=== PATIENT | female | born 1985 | race Caucasian/White ===

== ENCOUNTER → 2016-10-16 | Outpatient (CLI) | payer OTHER | LOC: MW.LAB 16:20 | PROVIDERS: ATTEND Obstetrics & Gynecology | DX: N77.1 Vaginitis, vulvitis and vulvovaginitis in diseases classified elsewhere (principal); Z31.9 Encounter for procreative management, unspecified | CPT/HCPCS: 36415; 82397; 83036 ==

== ENCOUNTER 2019-02-17 06:52 | Day surgery (SDC) | payer OTHER ==
--- NOTE | 2019-02-17 07:24 | PCM.PREANE ---
Preanesthetic Assessment - Anesthesia/Transfusion/Family Hx Anesthesia History: No Prior Anesthesia Family History of Anesthesia Reaction: No Transfusion History: No Prior Transfusion(s) - Review of Systems General: No Symptoms Pulmonary: No Symptoms Cardiovascular: No Symptoms Gastrointestinal: No Symptoms Neurological: No Symptoms Other: Reports: None - Physical Assessment NPO Status Date: 02/16/19 NPO Status Time: 21:00 Vital Signs: Last Vital Signs Temp 96.8 F 02/17/19 07:00 Pulse Resp 16 02/17/19 07:00 BP 138/78 02/17/19 07:00 Pulse Ox 98 02/17/19 07:00 Height: 5 ft 3 in Weight: 59.421 kg ASA Class: 1 Mental Status: Alert & Oriented x3 Airway Class: Mallampati = 2 Dentition: Reports: Normal Dentition ROM/Head Extension: Full Lungs: Clear to Auscultation, Normal Respiratory Effort Cardiovascular: Regular Rate, Regular Rhythm - Lab Values: Laboratory Last Values WBC 8.65 K/uL (4.0-11.0) 02/14/19 14:51 RBC 4.86 M/uL (4.30-5.90) 02/14/19 14:51 Hgb 14.2 g/dL (12.0-16.0) 02/14/19 14:51 Hct 41.0 % (36.0-46.0) 02/14/19 14:51 MCV 84.4 fL (80.0-98.0) 02/14/19 14:51 MCH 29.2 pg (27.0-32.0) 02/14/19 14:51 MCHC 34.6 g/dL (31.0-37.0) 02/14/19 14:51 RDW Std Deviation 38.3 fl (28.0-62.0) 02/14/19 14:51 RDW Coeff of Lila 13 % (11.0-15.0) 02/14/19 14:51 Plt Count 273 K/uL (150-400) 02/14/19 14:51 MPV 10.50 fL (7.40-12.00) 02/14/19 14:51 Nucleated RBC % 0.0 /100WBC 02/14/19 14:51 Nucleated RBCs # 0 K/uL 02/14/19 14:51 Blood Type A NEGATIVE 02/14/19 14:51 Antibody Screen NEGATIVE 02/14/19 14:51 - Allergies Allergies/Adverse Reactions: Allergies Allergy/AdvReac Type Severity Reaction Status Date / Time No Known Allergies Allergy Verified 02/15/19 12:56 - Blood Blood Available: No - Anesthesia Plan Pre-Op Medication Ordered: None - Acknowledgements Anesthesia Type Planned: General Anesthesia Pt an Appropriate Candidate for the Planned Anesthesia: Yes Alternatives and Risks of Anesthesia Discussed w Pt/Guardian: Yes Pt/Guardian Understands and Agrees with Anesthesia Plan: Yes Additional Comments: pmh: missed ab after twin preg via invitro PLAN: ga/lma PreAnesthesia Questionnaire HEENT History: Reports: Other (See Below) Other HEENT History: wears contacts Gastrointestinal History: Reports: GERD - SUBSTANCE USE Smoking Status *Q: Former Smoker Tobacco Use Within Last Twelve Months: No Recreational Drug Use History: No - HOME MEDS Home Medications: Home Meds . [No Known Home Meds] 02/15/19 [History] - CURRENT (IN HOUSE) MEDS Current Meds: Current Medications Lactated Ringer's (Ringers, Lactated) 1,000 mls @ 100 mls/hr IV ASDIRECTED NOEMI
[2019-02-17] MEDS ORDERED: Lidocaine 2% 5 ML SDV ONE (07:30)
[2019-02-17] MEDS ORDERED: Lactated Ringers 1,000 ML IV SCH (07:30)
[2019-02-17] MEDS ORDERED: Propofol 200 MG/20 ML SDV ONE (07:31)
[2019-02-17] MEDS ORDERED: Midazolam 1 MG/ML 2 ML SDV ONE (07:31)
[2019-02-17] MEDS ORDERED: fentaNYL 100 MCG/2 ML SDV ONE (07:31)
[2019-02-17] MEDS ORDERED: Methylergonovine 0.2 MG/1 ML Amp ONE (08:16)
[2019-02-17] MEDS ORDERED: Ketorolac 30 MG/ML SDV ONE (08:23)
[2019-02-17] MEDS ORDERED: Dexamethasone 4 MG/ML 5 ML MDV ONE (08:23)
[2019-02-17] MEDS ORDERED: Ondansetron 4 MG/2 ML SDV ONE (08:23)
--- NOTE | 2019-02-17 08:27 | PCM.OPNOTE ---
- General Post-Op/Procedure Note Date of Surgery/Procedure: 02/17/19 Operative Procedure(s): suction D&C Findings: Uterus anteverted sounds to 10 cm. preop, postop, firm, 8 week size. Pre Op Diagnosis: 6 week twin demise Post-Op Diagnosis: Same Anesthesia Technique: General LMA Primary Surgeon: Elana Cahng Secondary Surgeon: Brian Castillo Anesthesia Provider: Frankie Hernandez Donor Relations Manager: Eleonora House Pathology: Products of conception Output, Urine Amount: 50 EBL in mLs: 100 Complications: None Known Condition: Good
[2019-02-17] MEDS ORDERED: EPINEPHrine 1:10,000 1 MG/10 ML Syringe IVPUSH PRN (08:46)
[2019-02-17] MEDS ORDERED: 50% Dextrose in Water 50 ML Syringe IVPUSH PRN (08:46)
[2019-02-17] MEDS ORDERED: Albuterol 0.083% 2.5 MG/3 ML Neb Soln NEB PRN (08:46)
[2019-02-17] MEDS ORDERED: Atropine 0.1 MG/ML 10 ML Syringe IVPUSH PRN ×2 (08:46)
[2019-02-17] MEDS ORDERED: Naloxone 0.4 MG/ML Syringe IVPUSH PRN (08:46)
[2019-02-17] MEDS ORDERED: Acetaminophen 1,000 MG in Premix Bag 1 BAG IV PRN (08:48)
--- NOTE | 2019-02-17 12:15 | PCM.POSTAN ---
POST ANESTHESIA ASSESSMENT - MENTAL STATUS Mental Status: Alert, Oriented - VITAL SIGNS Vital Signs: Last Vital Signs Temp 96.6 F 02/17/19 09:18 Pulse 66 02/17/19 09:38 Resp 16 02/17/19 09:38 BP 107/64 02/17/19 09:38 Pulse Ox 100 02/17/19 09:38 - RESPIRATORY Respiratory Status: Respiratory Rate WNL, Airway Patent, O2 Saturation Stable - CARDIOVASCULAR CV Status: Pulse Rate WNL, Blood Pressure Stable - GASTROINTESTINAL GI Status: No Symptoms - POST OP HYDRATION Hydration Status: Adequate & Stable
--- NOTE | 2019-02-17 12:15 | PCM48HPAN ---
Post Anesthesia Note - EVALUATION WITHIN 48HRS OF ANESTHETIC Vital Signs in Normal Range: Yes Patient Participated in Evaluation: Yes Respiratory Function Stable: Yes Airway Patent: Yes Cardiovascular Function Stable: Yes Hydration Status Stable: Yes Pain Control Satisfactory: Yes Nausea and Vomiting Control Satisfactory: Yes Mental Status Recovered: Yes Vital Signs: Last Vital Signs Temp 96.6 F 02/17/19 09:18 Pulse 66 02/17/19 09:38 Resp 16 02/17/19 09:38 BP 107/64 02/17/19 09:38 Pulse Ox 100 02/17/19 09:38
--- NOTE | 2019-02-17 13:32 | OR ---
SURGEON: Elana Chang M.D. DATE OF PROCEDURE: 02/17/2019 PREOPERATIVE DIAGNOSIS: Missed twin . POSTOPERATIVE DIAGNOSIS: Missed twin . PROCEDURE: Suction, dilatation, and curettage. PRIMARY SURGEON: Elana Chang MD. SUBSTATION INSPECTOR: TIFFANY Cary. ANESTHESIA: General LMA. ESTIMATED BLOOD LOSS: 100 mL. FLUIDS: Approximately 1000 mL of crystalloid. URINE OUTPUT: 50 mL. FINDINGS: Uterus anteverted, 10-week size. Preoperatively, sounds to 10 cm. Postoperatively, uterus 8-week size, firm. Post ultrasound, shows no tissue remaining in the uterus. COMPLICATIONS: None known. DISPOSITION: Stable to recovery. BRIEF HISTORY: This is a 33-year-old female. She is a patient of Dr. Joseph, a parking patroller in [place]. She had a twin gestation, documented heart tones at 6 weeks 3 days. Two weeks later, followup ultrasound showed no embryonic growth and absent embryonic cardiac activity. She was provided with options including expectant management, Cytotec, and D and C. She desires to proceed with a suction, dilatation, and curettage with risks discussed including bleeding, infection, uterine perforation with injury to surrounding organs, risk of thromboembolic event, risk of anesthesia. Understanding all these risks, she does desire to proceed. DESCRIPTION OF PROCEDURE: With the patient in dorsal lithotomy position, under adequate LMA analgesia, the perineum and vagina were prepped with Betadine and draped in the usual fashion for pelvic surgery. Bladder had been drained. SCDs were in place. An appropriate time-out was held. Bimanual examination revealed a 10-week size anteverted uterus. Speculum was placed in the vagina. The anterior lip of the cervix was grasped with an Allis clamp and the uterus sounded to 10 cm. The cervix was dilated to an 11 mm Hegar dilator. An 11 mm suction cannula was placed to the uterine fundus. On the initial pass, there was a moderate amount of tissue obtained. Following that, with repetitive passes with suction in the green zone, there was no additional tissue obtained. Sharp curettage was performed at the 12, 3, 6, and 9 o'clock position. No additional tissue was obtained. The uterine cry was felt. Ultrasound was performed to confirm that the tissue had been completely removed. The endometrial cavity was identified. There was a small amount of blood in the endometrial cavity. No tissue identified. Therefore, one additional pass was taken with the suction curette. There was no additional tissue. Therefore, the speculum was removed. Bimanual examination was performed with findings as noted above. Final sponge, needle, and instrument counts were reported as correct. There were no known complications. The patient was transferred to recovery in good condition. JODY / HUY /[id number]
== END 2019-02-17 09:48 | disposition home or self-care (01) ==
LOC: MW.SDS 06:52
PROVIDERS: ATTEND Obstetrics & Gynecology
DX: O02.1 Missed abortion (principal); N85.4 Malposition of uterus; Z87.891 Personal history of nicotine dependence; Z79.899 Other long term (current) drug therapy
CPT/HCPCS: 36415; 59820; 85027; 86850; 86900; 86901; J0131; J1100; J1885; J2001; J2250; J2405; J2704; J2792; J3010; J7120; J2210

== ENCOUNTER 2019-05-11 12:35 | Day surgery (SDC) | payer OTHER ==
[~2019-05-11 12:35] MED LIST: Lactated Ringers 1,000 ML IV SCH
[2019-05-11] MEDS ORDERED: fentaNYL 100 MCG/2 ML SDV ONE (12:51)
[2019-05-11] MEDS ORDERED: Propofol 200 MG/20 ML SDV ONE (12:51)
[2019-05-11] MEDS ORDERED: Midazolam 1 MG/ML 2 ML SDV ONE (12:51)
[2019-05-11] MEDS ORDERED: Ondansetron 4 MG/2 ML SDV ONE (12:53)
--- NOTE | 2019-05-11 13:09 | PCM.PREANE ---
Preanesthetic Assessment - Anesthesia/Transfusion/Family Hx Anesthesia History: Prior Anesthesia Without Reaction Family History of Anesthesia Reaction: No Transfusion History: No Prior Transfusion(s) - Review of Systems General: No Symptoms Pulmonary: No Symptoms Cardiovascular: No Symptoms Gastrointestinal: No Symptoms Neurological: No Symptoms Other: Reports: None - Physical Assessment NPO Status Date: 05/10/19 Height: 5 ft 3 in Weight: 61.235 kg Mental Status: Alert & Oriented x3 Dentition: Reports: Normal Dentition ROM/Head Extension: Full Lungs: Clear to Auscultation, Normal Respiratory Effort Cardiovascular: Regular Rate, Regular Rhythm - Allergies Allergies/Adverse Reactions: Allergies Allergy/AdvReac Type Severity Reaction Status Date / Time No Known Allergies Allergy Verified 05/10/19 10:49 - Blood Blood Available: No - Anesthesia Plan Pre-Op Medication Ordered: None - Acknowledgements Anesthesia Type Planned: General Anesthesia Pt an Appropriate Candidate for the Planned Anesthesia: Yes Alternatives and Risks of Anesthesia Discussed w Pt/Guardian: Yes Pt/Guardian Understands and Agrees with Anesthesia Plan: Yes PreAnesthesia Questionnaire HEENT History: Reports: Other (See Below) Other HEENT History: wears contacts/glasses Cardiovascular History: Reports: None Respiratory History: Reports: None Gastrointestinal History: Reports: Hepatitis Other Gastrointestinal History: occasional heartburn, hepatitis at 7 y/o Genitourinary History: Reports: None DEVELOPMENT INTERN History: Reports: Spontaneous Other OB/BYN History: infertility Musculoskeletal History: Reports: None Neurological History: Reports: None Psychiatric History: Reports: None Endocrine/Metabolic History: Reports: None Hematologic History: Reports: None Immunologic History: Reports: None Oncologic (Cancer) History: Reports: None Dermatologic History: Reports: None - Past Surgical History Head Surgeries/Procedures: Reports: None HEENT Surgical History: Reports: None Cardiovascular Surgical History: Reports: None Respiratory Surgical History: Reports: None GI Surgical History: Reports: None Female Surgical History: Reports: D&C Endocrine Surgical History: Reports: None Neurological Surgical History: Reports: None Musculoskeletal Surgical History: Reports: None Oncologic Surgical History: Reports: None Dermatological Surgical History: Reports: None - SUBSTANCE USE Smoking Status *Q: Never Smoker Recreational Drug Use History: No - HOME MEDS Home Medications: Home Meds L.acidoph,Paracasei, B.lactis [Probiotic] 1 tab PO DAILY 05/10/19 [History] Pnv No.95/Ferrous Fum/Folic AC [ Vitamin Tablet] 1 tab PO DAILY [History] - CURRENT (IN HOUSE) MEDS Current Meds: Current Medications Lactated Ringer's (Ringers, Lactated) 1,000 mls @ 125 mls/hr IV ASDIRECTED NOEMI Discontinued Medications Fentanyl (Sublimaze) Confirm Administered Dose 100 mcg .ROUTE .STK-MED ONE Stop: 05/11/19 12:52 Lidocaine HCl (Xylocaine-Mpf 1%) Confirm Administered Dose 5 ml .ROUTE .STK-MED ONE Stop: 05/11/19 12:54 Midazolam HCl (Versed 1 Mg/Ml) Confirm Administered Dose 2 mg .ROUTE .STK-MED ONE Stop: 05/11/19 12:52 Ondansetron HCl (Zofran) Confirm Administered Dose 4 mg .ROUTE .STK-MED ONE Stop: 05/11/19 12:54 Propofol (Diprivan 20 Ml) Confirm Administered Dose 200 mg .ROUTE .STK-MED ONE Stop: 05/11/19 12:52
[2019-05-11] MEDS ORDERED: fentaNYL 100 MCG/2 ML SDV IVPUSH PRN (14:36)
[2019-05-11] MEDS ORDERED: Ondansetron 4 MG/2 ML SDV IVPUSH ONE (14:36)
[2019-05-11] MEDS ORDERED: Ketorolac 30 MG/ML SDV ONE (14:39)
--- NOTE | 2019-05-11 14:53 | PCM.OPNOTE ---
- General Post-Op/Procedure Note Date of Surgery/Procedure: 05/11/19 Operative Procedure(s): operative hysteroscopy with directed biopsies and curettage Findings: Uterus retroverted 8 cm, normal cavity, bilateral tubal ostia identified, no lesions or retained products of conception Pre Op Diagnosis: menometrorrhagia. Post-Op Diagnosis: Same Anesthesia Technique: General LMA Primary Surgeon: Elana Chnag Anesthesia Provider: Jeffrey Peck Pathology: endometrial curettings EBL in mLs: 10 Drain/Tube Comments:: hysteroscopic deficit 180 ml NS Complications: None Known Condition: Good
--- NOTE | 2019-05-11 15:16 | PCM.POSTAN ---
POST ANESTHESIA ASSESSMENT - MENTAL STATUS Mental Status: Alert, Oriented - VITAL SIGNS Vital Signs: Last Vital Signs Temp 98.8 F 05/11/19 14:55 Pulse 57 L 05/11/19 15:00 Resp 12 05/11/19 15:00 BP 133/78 05/11/19 15:00 Pulse Ox 99 05/11/19 15:00 - RESPIRATORY Respiratory Status: Respiratory Rate WNL, Airway Patent, O2 Saturation Stable - CARDIOVASCULAR CV Status: Pulse Rate WNL, Blood Pressure Stable - GASTROINTESTINAL GI Status: No Symptoms - PAIN Pain Score: 3 - POST OP HYDRATION Hydration Status: Adequate & Stable
--- NOTE | 2019-05-11 16:41 | PCM48HPAN ---
Post Anesthesia Note - EVALUATION WITHIN 48HRS OF ANESTHETIC Vital Signs in Normal Range: Yes Patient Participated in Evaluation: Yes Respiratory Function Stable: Yes Airway Patent: Yes Cardiovascular Function Stable: Yes Hydration Status Stable: Yes Pain Control Satisfactory: Yes Nausea and Vomiting Control Satisfactory: Yes Mental Status Recovered: Yes Vital Signs: Last Vital Signs Temp 98.8 F 05/11/19 14:55 Pulse 65 05/11/19 15:25 Resp 11 L 05/11/19 15:25 BP 118/68 05/11/19 15:25 Pulse Ox 100 05/11/19 15:25
--- NOTE | 2019-05-12 09:01 | OR ---
SURGEON: Elana Chang M.D. DATE OF PROCEDURE: 05/11/2019 PREOPERATIVE DIAGNOSIS: Irregular bleeding after a missed spontaneous . POSTOPERATIVE DIAGNOSIS: Irregular bleeding after a missed spontaneous . PROCEDURE: Operative hysteroscopy with curettings. PRIMARY SURGEON: Elana Chang MD. ANESTHESIA: General LMA. ESTIMATED BLOOD LOSS: Less than 20 mL. HYSTEROSCOPIC DEFICIT: 180 mL of crystalloid. FINDINGS: The uterus sounded to 7 cm, it was retroverted. Upon hysteroscopic evaluation of the uterine cavity, there was excellent visualization of bilateral tubal ostia, the fundus, and the lower uterine segment and cervix. There was no evidence of any retained products of conception. COMPLICATIONS: None known. DISPOSITION: Stable to recovery. BRIEF HISTORY: This is a 34-year-old female. She had a monochorionic diamniotic twin gestation, which resulted in demise of both embryos. She underwent a suction dilatation and curettage. She is under the care of her retail sales representative, who was following HCG levels down to 0, and it took a prolonged time period for them to reach a negative value. An ultrasound showed some irregular endometrium. Therefore, it is necessary to rule out any retained products of conception, preferably by hysteroscopy. The patient was counseled regarding the reason to proceed with hysteroscopy, and she concurs. Surgical risks were discussed including bleeding, infection, uterine perforation with injury to surrounding organs, risk of Asherman syndrome, and risk of fluid overload in addition to anesthetic risks. Understanding all these risks, she does desire to proceed. DESCRIPTION OF PROCEDURE: With the patient in dorsolithotomy position, under adequate LMA analgesia, the perineum and vagina were prepped with Betadine and draped in the usual fashion for a vaginal surgery. SCDs were in place. The bladder had been drained with a red Jacobsen catheter and an appropriate time-out was held. Bimanual examination revealed a retroverted 8-week size uterus. The speculum was placed in the vagina. The posterior lip of the cervix was grasped with an Allis clamp and the cervix was dilated to an 8 mm Hegar dilator. The 8 mm hysteroscope was then placed into the uterine cavity. There was excellent visualization. There were no discrete lesions. There was some irregular endometrium at the fundus, and therefore, the MyoSure was utilized in a directed manner to perform curettage of the prominent areas of endometrium. With this being completed, the instruments were removed from the vagina. Final sponge, needle, and instrument counts were reported as correct. There were no known complications. The patient was transferred to recovery in good condition. JODY SON /[id number]
== END 2019-05-11 16:30 | disposition home or self-care (01) ==
LOC: MW.SDS 12:35
PROVIDERS: ATTEND Obstetrics & Gynecology
DX: N93.9 Abnormal uterine and vaginal bleeding, unspecified (principal)
CPT/HCPCS: 58558; 81025; J1885; J2001; J2250; J2405; J2704; J3010; J7120; 00952; 88305

== ENCOUNTER 2020-12-03 13:40 | Inpatient (IN) | payer OTHER ==
[2020-12-03] MEDS ORDERED: Ondansetron 4 MG/2 ML SDV IVPUSH PRN (13:45)
[2020-12-03] MEDS ORDERED: Lidocaine 1% 50 ML MDV INJECT PRN (13:45)
[2020-12-03] MEDS ORDERED: Sodium Chloride 0.9% 10 ML SDV IV PRN (13:45)
[2020-12-03] MEDS ORDERED: Sodium Chloride 0.9% 10 ML Syringe FLUSH PRN (13:45)
[2020-12-03] MEDS ORDERED: Terbutaline 1 MG/ML SDV SUBCUT PRN (13:45)
[2020-12-03] MEDS ORDERED: Sodium Chloride 0.9% 2.5 ML Syringe FLUSH PRN (13:45)
[2020-12-03] MEDS ORDERED: Butorphanol 1 MG/ML SDV IVPUSH PRN (13:45)
[2020-12-03] MEDS ORDERED: Tranexamic Acid 1,000 MG in Sodium Chloride 0.9% 100 ML IV PRN (13:45)
[2020-12-03] MEDS ORDERED: Carboprost Tromethamine 250 MCG/1 ML Amp IM PRN (13:45)
[2020-12-03] MEDS ORDERED: Oxytocin/0.9 % Sodium Chloride 30 UNIT/500 ML BAG IV SCH ×2 (13:45)
[2020-12-03] MEDS ORDERED: Methylergonovine 0.2 MG/1 ML Amp IM PRN (13:45)
[2020-12-03] MEDS ORDERED: Misoprostol 200 MCG Tab PO PRN (13:45)
[2020-12-03] MEDS ORDERED: Water For Irrigation,Sterile 1,000 ML Container IRR PRN (13:45)
[2020-12-03] MEDS: Lactated Ringers 1,000 ML IV SCH ×2 (14:10→19:56)
[2020-12-03] MEDS ORDERED: Ropivacaine HCl/PF 200 ML ONE (20:07)
[2020-12-03] MEDS ORDERED: Bupivacaine 0.25% 10 ML SDV ONE (20:07)
--- NOTE | 2020-12-03 20:36 | PCM.PREANE ---
Preanesthetic Assessment - Anesthesia/Transfusion/Family Hx Anesthesia History: Prior Anesthesia Without Reaction Family History of Anesthesia Reaction: No Transfusion History: No Prior Transfusion(s) - Review of Systems General: No Symptoms Pulmonary: No Symptoms Cardiovascular: No Symptoms Gastrointestinal: No Symptoms Neurological: No Symptoms Other: Reports: None - Physical Assessment NPO Status Date: 12/03/20 NPO Status Time: 18:00 Height: 5 ft 3 in Weight: 162 lb 8 oz ASA Class: 2 Mental Status: Alert & Oriented x3 Airway Class: Mallampati = 2 Dentition: Reports: Normal Dentition ROM/Head Extension: Full Lungs: Clear to Auscultation, Normal Respiratory Effort Cardiovascular: Regular Rate, Regular Rhythm - Lab Values: Laboratory Last Values WBC 7.78 K/uL (4.0-11.0) 12/03/20 14:10 RBC 4.47 M/uL (4.30-5.90) 12/03/20 14:10 Hgb 12.1 g/dL (12.0-16.0) 12/03/20 14:10 Hct 37.1 % (36.0-46.0) 12/03/20 14:10 MCV 83.0 fL (80.0-98.0) 12/03/20 14:10 MCH 27.1 pg (27.0-32.0) 12/03/20 14:10 MCHC 32.6 g/dL (31.0-37.0) 12/03/20 14:10 RDW Std Deviation 41.0 fl (28.0-62.0) 12/03/20 14:10 RDW Coeff of Lila 14 % (11.0-15.0) 12/03/20 14:10 Plt Count 290 K/uL (150-400) 12/03/20 14:10 MPV 11.60 fL (7.40-12.00) 12/03/20 14:10 Nucleated RBC % 0.0 /100WBC 12/03/20 14:10 Nucleated RBCs # 0 K/uL 12/03/20 14:10 SARS-CoV-2 RNA (JANAE) NEGATIVE (NEGATIVE) 12/03/20 14:10 Blood Type A NEGATIVE 12/03/20 14:10 Antibody Screen NEGATIVE 12/03/20 14:10 - Allergies Allergies/Adverse Reactions: Allergies Allergy/AdvReac Type Severity Reaction Status Date / Time No Known Allergies Allergy Verified 05/11/19 13:56 - Blood Blood Available: Yes Product(s) Available: PRBC - Anesthesia Plan Pre-Op Medication Ordered: None - Acknowledgements Anesthesia Type Planned: Epidural Pt an Appropriate Candidate for the Planned Anesthesia: Yes Alternatives and Risks of Anesthesia Discussed w Pt/Guardian: Yes Pt/Guardian Understands and Agrees with Anesthesia Plan: Yes PreAnesthesia Questionnaire HEENT History: Reports: Other (See Below) Other HEENT History: wears contacts/glasses Cardiovascular History: Reports: None Respiratory History: Reports: None Gastrointestinal History: Reports: Hepatitis Other Gastrointestinal History: occasional heartburn, hepatitis at 7 y/o Genitourinary History: Reports: None BASTER HAND History: Reports: , Spontaneous Other OB/BYN History: infertility Musculoskeletal History: Reports: None Neurological History: Reports: None Psychiatric History: Reports: None Endocrine/Metabolic History: Reports: None Hematologic History: Reports: None Immunologic History: Reports: None Oncologic (Cancer) History: Reports: None Dermatologic History: Reports: None - Infectious Disease History Infectious Disease History: Reports: Chicken Pox, Hepatitis C - Past Surgical History Head Surgeries/Procedures: Reports: None HEENT Surgical History: Reports: None Cardiovascular Surgical History: Reports: None Respiratory Surgical History: Reports: None GI Surgical History: Reports: None Female Surgical History: Reports: D&C Endocrine Surgical History: Reports: None Neurological Surgical History: Reports: None Musculoskeletal Surgical History: Reports: None Oncologic Surgical History: Reports: None Dermatological Surgical History: Reports: None - SUBSTANCE USE Tobacco Use Status *Q: Never Tobacco User Second Hand Smoke Exposure: No Recreational Drug Use History: No - HOME MEDS Home Medications: Home Meds L.acidoph,Paracasei, B.lactis [Probiotic] 1 tab PO DAILY 05/10/19 [History] Pnv No.95/Ferrous Fum/Folic AC [ Vitamin Tablet] 1 tab PO DAILY 05/10/19 [History] - CURRENT (IN HOUSE) MEDS Current Meds: Current Medications Butorphanol Tartrate (Butorphanol 1 Mg/Ml Sdv) 1 mg IVPUSH Q1H PRN PRN Reason: Pain (severe 7-10) Carboprost Tromethamine (Carboprost Tromethamine 250 Mcg/1 Ml Amp) 250 mcg IM ASDIRECTED PRN PRN Reason: Post Hemorrhage Oxytocin/Sodium Chloride (Oxytocin 30 Unit/500 Ml-Ns) 30 unit in 500 mls @ 999 mls/hr IV TITRATE NOEMI Tranexamic Acid 1,000 mg/ (Sodium Chloride) 110 mls @ 660 mls/hr IV ONETIME PRN PRN Reason: Bleeding Oxytocin/Sodium Chloride (Oxytocin 30 Unit/500 Ml-Ns) 30 unit in 500 mls @ 2 mls/hr IV TITRATE NOEMI; Protocol Last Titration: 12/03/20 18:21 Dose: 12 munits/min, 12 mls/hr Documented by: Lactated Ringer's (Ringers, Lactated) 1,000 mls @ 150 mls/hr IV ASDIRECTED NOEMI Last Admin: 12/03/20 19:56 Dose: 150 mls/hr Documented by: Lidocaine HCl (Lidocaine 1% 50 Ml Mdv) 50 ml INJECT ONETIME PRN PRN Reason: Laceration repair Methylergonovine Maleate (Methylergonovine 0.2 Mg/1 Ml Amp) 0.2 mg IM ASDIRECTED PRN PRN Reason: Post Hemorrhage Misoprostol (Misoprostol 200 Mcg Tab) 200 mcg PO ONETIME PRN PRN Reason: Post Hemorrhage Ondansetron HCl (Ondansetron 4 Mg/2 Ml Sdv) 4 mg IVPUSH Q4H PRN PRN Reason: Nausea/Vomiting Sodium Chloride (Sodium Chloride 0.9% 10 Ml Syringe) 10 ml FLUSH ASDIRECTED PRN PRN Reason: Keep Vein Open Sodium Chloride (Sodium Chloride 0.9% 2.5 Ml Syringe) 2.5 ml FLUSH ASDIRECTED PRN PRN Reason: Keep Vein Open Sodium Chloride (Sodium Chloride 0.9% 10 Ml Sdv) 10 ml IV ASDIRECTED PRN PRN Reason: IV Use Sterile Water (Water For Irrigation,Sterile 1,000 Ml Container) 1,000 ml IRR ASDIRECTED PRN PRN Reason: delivery Terbutaline Sulfate (Terbutaline 1 Mg/Ml Sdv) 0.25 mg SUBCUT ASDIRECTED PRN PRN Reason: Tacysystole Discontinued Medications Bupivacaine HCl (Bupivacaine 0.25% 10 Ml Sdv) Confirm Administered Dose 10 ml .ROUTE .[facility]-MED ONE Stop: 12/03/20 20:08 Ropivacaine (Naropin 0.2%) Confirm Administered Dose 200 mls @ as directed .ROUTE .STK-MED ONE Stop: 12/03/20 20:08 - Pre-Procedure Checklist Attending Provider Aware: Yes Chart Reviewed: Yes Consent Signed: Yes Labs Reviewed: Yes VS/FHR Reviewed: Yes Patient Identification Confirmation Method: Reports: Verbal Patient Pt an Appropriate Candidate for the Planned Anesthesia: Yes Alternatives and Risks of Anesthesia Discussed w Pt/Guardian: Yes - Procedure Procedure Start Date: 12/03/20 Procedure Start Time: 20:[address]: Reports: Blood Pressure, Heart Rate, SPO2 Functional IV: Yes Safety Measures: Reports: Patient Identified, Procedure Verified, Site Verified, Procedure Time Out Patient Position: Reports: Sitting Prep: Reports: Betadine x3, Sterile Drape Local Anesthetic: Reports: Intradermal Wheal w Lidocaine 1% Regional Placement Level: Reports: L3-4 Needle: Reports: 17 g Touhy Approach: Reports: Midline Technique: Reports: ANGELA Plastic Syringe Parasthesia: Reports: None Fluid Obtained: Reports: None Test Dose Time: 20:16 Test Dose Medication: Reports: Lidocaine 1.5% w Epinephrine 1:200,000 Test Dose Response: Reports: Negative Loading Dose Time: 20:15 Loading Dose Medication: bupivicaine 0.25% 10cc Loading Dose Patient Position: sitting Continuous Infusion Start Time: 20:20 Continuous Infusion Medication: ropivicaine 0.2% Continuous Infusion Rate: 16 Continuous Infusion PCS Bolus Option: 4 Continuous Infusion Lockout Dose (cc/hr): 28 Patient Position Post Placement: Reports: Supline/MASSIEL VS and FHR Monitored in Unit Post Placement: Yes Procedure End Date: 12/03/20 Procedure End Time: 21:10
--- NOTE | 2020-12-04 02:29 | PCM.DEL ---
L & D Note - General Info Date of Service: 12/04/20 Mother's Due Date: 12/05/20 - Delivery Note Labor: Induced by Oxytocin Delivery Outcome: Livebirth Infant Delivery Method: Spontaneous Vaginal Delivery-Single Delivery Mode: Vacuum Extraction Presentation: Left Occiput Anterior (MARTIN) Nuchal Cord: None Prep: Other Anesthesia Type: Epidural Amniotic Fluid Description: Clear Laceration: 2nd Degree, Sulcus Suture type: Vicryl Suture size: 3-0 Placenta: Intact, Spontaneous Cord: 3 Vessels Estimated Blood Loss: 200 Score 1 min: 8 Score 5 min: 9 Delivery Comments (Free Text/Narrative):: Liveborn male 8/9 weight 7#1oz. Terminal bradycardia to 80's without recovery therefore vacuum assist recommended and patient agreed. Two pop-offs during vacuum application. Delivered over 3 contractions after application of vacuum. - General Info Date of Service: 12/04/20 - Patient Data Weight - Most Recent: 73.709 kg Lab Results Last 24 Hours: Laboratory Results - last 24 hr 12/03/20 12/03/20 12/03/20 Range/Units 14:10 14:10 14:10 WBC 7.78 (4.0-11.0) K/uL RBC 4.47 (4.30-5.90) M/uL Hgb 12.1 (12.0-16.0) g/dL Hct 37.1 (36.0-46.0) % MCV 83.0 (80.0-98.0) fL MCH 27.1 (27.0-32.0) pg MCHC 32.6 (31.0-37.0) g/dL RDW Std Deviation 41.0 (28.0-62.0) fl RDW Coeff of Lila 14 (11.0-15.0) % Plt Count 290 (150-400) K/uL MPV 11.60 (7.40-12.00) fL Nucleated RBC % 0.0 /100WBC Nucleated RBCs # 0 K/uL SARS-CoV-2 RNA (JANAE) NEGATIVE (NEGATIVE) Blood Type A NEGATIVE Antibody Screen NEGATIVE Med Orders - Current: Current Medications Butorphanol Tartrate (Butorphanol 1 Mg/Ml Sdv) 1 mg IVPUSH Q1H PRN PRN Reason: Pain (severe 7-10) Carboprost Tromethamine (Carboprost Tromethamine 250 Mcg/1 Ml Amp) 250 mcg IM ASDIRECTED PRN PRN Reason: Post Hemorrhage Oxytocin/Sodium Chloride (Oxytocin 30 Unit/500 Ml-Ns) 30 unit in 500 mls @ 999 mls/hr IV TITRATE NOEMI Tranexamic Acid 1,000 mg/ (Sodium Chloride) 110 mls @ 660 mls/hr IV ONETIME PRN PRN Reason: Bleeding Oxytocin/Sodium Chloride (Oxytocin 30 Unit/500 Ml-Ns) 30 unit in 500 mls @ 2 mls/hr IV TITRATE [facility]; Protocol Last Titration: 12/03/20 21:00 Dose: 12 munits/min, 12 mls/hr Documented by: Lactated Ringer's (Ringers, Lactated) 1,000 mls @ 150 mls/hr IV ASDIRECTED NOEMI Last Admin: 12/03/20 19:56 Dose: 150 mls/hr Documented by: Lidocaine HCl (Lidocaine 1% 50 Ml Mdv) 50 ml INJECT ONETIME PRN PRN Reason: Laceration repair Methylergonovine Maleate (Methylergonovine 0.2 Mg/1 Ml Amp) 0.2 mg IM ASDIRECTED PRN PRN Reason: Post Hemorrhage Misoprostol (Misoprostol 200 Mcg Tab) 200 mcg PO ONETIME PRN PRN Reason: Post Hemorrhage Ondansetron HCl (Ondansetron 4 Mg/2 Ml Sdv) 4 mg IVPUSH Q4H PRN PRN Reason: Nausea/Vomiting Sodium Chloride (Sodium Chloride 0.9% 10 Ml Syringe) 10 ml FLUSH ASDIRECTED PRN PRN Reason: Keep Vein Open Sodium Chloride (Sodium Chloride 0.9% 2.5 Ml Syringe) 2.5 ml FLUSH ASDIRECTED PRN PRN Reason: Keep Vein Open Sodium Chloride (Sodium Chloride 0.9% 10 Ml Sdv) 10 ml IV ASDIRECTED PRN PRN Reason: IV Use Sterile Water (Water For Irrigation,Sterile 1,000 Ml Container) 1,000 ml IRR ASDIRECTED PRN PRN Reason: delivery Terbutaline Sulfate (Terbutaline 1 Mg/Ml Sdv) 0.25 mg SUBCUT ASDIRECTED PRN PRN Reason: Tacysystole Discontinued Medications Bupivacaine HCl (Bupivacaine 0.25% 10 Ml Sdv) Confirm Administered Dose 10 ml .ROUTE .[facility]-MED ONE Stop: 12/03/20 20:08 Ropivacaine (Naropin 0.2%) Confirm Administered Dose 200 mls @ as directed .ROUTE .STK-MED ONE Stop: 12/03/20 20:08 - Problem List & Annotations (1) resulting from assisted reproductive technology in third trimester SNOMED Code(s): 70122110, 08328477, 010983953 Code(s): O09.813 - SUPRVSN OF PREG RSLT FROM ASSISTED REPRODCTV TECH, THIRD TRI Status: Acute Current Visit: Yes (2) Vacuum extraction, delivered, current hospitalization SNOMED Code(s): 071093173 Code(s): O75.9 - COMPLICATION OF LABOR AND DELIVERY, UNSPECIFIED Status: Acute Current Visit: Yes (3) bradycardia during labor SNOMED Code(s): 378665196, 867920727, 469428574 Code(s): MWC1303 - Status: Acute Current Visit: Yes - Problem List Review Problem List Initiated/Reviewed/Updated: Yes - My Orders Last 24 Hours: My Active Orders 12/04/20 01:32 BLOOD GAS ARTERIAL UMBILICAL [BG] Routine BLOOD GAS VENOUS UMBILICAL [BG] Routine
[2020-12-04] MEDS ORDERED: Benzocaine/Menthol 20%-0.5% Spray 78 GM Cannister TOP PRN (02:31)
[2020-12-04] MEDS ORDERED: Witch Hazel Medicated Pads 40/Jar TOP PRN (02:31)
[2020-12-04] MEDS ORDERED: Ibuprofen 400 MG Tab PO PRN (02:31)
[2020-12-04] MEDS ORDERED: Tranexamic Acid 1,000 MG in Sodium Chloride 0.9% 100 ML IV PRN (02:31)
[2020-12-04] MEDS ORDERED: Acetaminophen 500 MG Tab PO PRN (02:31)
[2020-12-04] MEDS ORDERED: Bisacodyl 10 MG Supp RECTAL PRN (02:31)
[2020-12-04] MEDS ORDERED: Methylergonovine 0.2 MG/1 ML Amp IM PRN (02:31)
[2020-12-04] MEDS: Acetaminophen 500 MG Tab PO PRN ×3 (03:30→13:09)
[2020-12-04] MEDS: Docusate Sodium 100 MG Cap PO PRN ×2 (04:16→21:51)
[2020-12-04] MEDS: Lanolin 100% Cream 7 GM Tube TOP PRN (04:18)
[2020-12-04] MEDS: Ibuprofen 800 MG Tab PO PRN ×2 (06:17→17:53)
--- NOTE | 2020-12-04 07:28 | OR ---
SURGEON: Elana Chang M.D. DATE OF PROCEDURE: 12/04/2020 PREOPERATIVE DIAGNOSES: 1. A 39-6/7 week intrauterine . 2. conceived by reproductive-assisted techniques. 3. Small for gestational age. 4. bradycardia. POSTOPERATIVE DIAGNOSES: 1. A 39-6/7 week intrauterine . 2. conceived by reproductive-assisted techniques. 3. Small for gestational age. 4. bradycardia. PROCEDURES: 1. Vacuum-assisted vaginal delivery. 2. Repair of second-degree perineal laceration. PRIMARY SURGEON: Elana Chang M.D. ANESTHESIA: Epidural. ESTIMATED BLOOD LOSS: Less than 200 mL. FINDINGS: Liveborn male. scores 8 and 9. Weight of 7 pounds 1 ounce. Placenta spontaneous, Schultze intact with 3 vessels. Deep second-degree perineal laceration with left vaginal sulcus extension repaired. COMPLICATIONS: None known. DISPOSITION: Mother and baby are in LDR in good condition. BRIEF HISTORY: This is a 35-year-old female, she is G3, P0. She presents at 39-5/7 weeks' gestation for induction of labor. She was 3 cm, 90% effaced. She received Pitocin. She then had an epidural placed. When she was 3 to 4 cm dilated, she had artificial rupture of membranes. She progressed over the next 2 hours to 7 cm and then to complete. DESCRIPTION OF PROCEDURE: With the patient in dorsal lithotomy position, the patient pushed to a 4+ station. At this time, bradycardia down to the 80s without recovery between contractions was noted. She was offered and agreed to a vacuum-assisted vaginal delivery with risks discussed including scalp laceration, intracranial hemorrhage, and more severe vaginal and perineal lacerations. Understanding these risks, she desired to proceed with a vacuum-assisted vaginal delivery. The bladder was drained with a red Jacobsen catheter, and the fetus was found to be in the left occiput anterior position with. Maternal expulsive efforts, the vacuum center was placed 2 cm anterior to the posterior fontanelle in the midsagittal line; and over 3 contractions with two pop offs, the head was delivered over the perineum with support, with subsequent delivery of the 's shoulders and body without any difficulty. The was bulb suctioned by nose and mouth and handed to the mother in the presence of nurse attending delivery. The infant is a liveborn male, scores of 8 and 9, weight of 7 pounds 1 ounce. After 2 minutes, the cord was doubly clamped and cut and cord blood was collected for cord ABGs as well as routine cord blood sampling. Pitocin was initiated after delivery the to assist with delivery of the placenta which was delivered spontaneously, Schultze intact, with 3 vessels. Upon inspection of pelvis and perineum, there were no periurethral, vaginal sidewall, cervical, or rectal lacerations. The second- degree vaginal laceration did extend laterally on the left side to the vaginal sulcus and the transverse perineal muscle was involved, but the sphincter was not involved. However, for repair 2 [id number] support sutures were placed in the tissue surrounding the sphincter. These were a [id number] suture of PDS. 3-0 Vicryl was then used to reapproximate the deep vaginal tissue extending along the sulcus, and then a running lock suture of 3-0 Caprosyn was utilized to reapproximate the vaginal mucosa. A deep running suture of the remaining perineal tissue was utilized also of the 3-0 Monocryl and a subcuticular suture of the same. Final sponge, needle, and instrument counts were reported correct. There were no known complications. Mother and baby remained in recovery in good condition. JODY SON /[id number]
[2020-12-04] MEDS: Prenatal Multivitamin with Calcium/Folic Acid/Iron Tab PO SCH (09:06)
[2020-12-04] MEDS: Acidophilus with Citrus Pectin Tab PO SCH (10:22)
[2020-12-05] MEDS: Acetaminophen 500 MG Tab PO PRN ×3 (01:23→15:51)
[2020-12-05] MEDS: Prenatal Multivitamin with Calcium/Folic Acid/Iron Tab PO SCH (07:52)
[2020-12-05] MEDS: Docusate Sodium 100 MG Cap PO PRN (07:52)
--- NOTE | 2020-12-05 09:04 | PCM.PNPP ---
- General Info Date of Service: 12/05/20 Functional Status: Reports: Pain Controlled, Tolerating Diet, Ambulating, Urinating - Review of Systems General: Reports: No Symptoms HEENT: Reports: No Symptoms Pulmonary: Reports: No Symptoms Cardiovascular: Reports: No Symptoms Gastrointestinal: Reports: No Symptoms Genitourinary: Reports: No Symptoms Musculoskeletal: Reports: No Symptoms Skin: Reports: No Symptoms Neurological: Reports: No Symptoms Psychiatric: Reports: No Symptoms - General Info Date of Service: 12/05/20 - Patient Data Vital Signs - Most Recent: Last Vital Signs Temp 35.9 C L 12/05/20 07:56 Pulse 98 12/05/20 07:56 Resp 20 12/05/20 07:56 BP 122/77 12/05/20 07:56 Pulse Ox 100 12/05/20 07:56 Weight - Most Recent: 73.709 kg Lab Results - Last 24 Hours: Laboratory Results - last 24 hr 12/05/20 Range/Units 06:08 Hgb 9.4 L (12.0-16.0) g/dL Hct 28.6 L (36.0-46.0) % Med Orders - Current: Current Medications Acetaminophen (Acetaminophen 500 Mg Tab) 500 mg PO Q4H PRN PRN Reason: Pain (mild 1-3) Acetaminophen (Acetaminophen 500 Mg Tab) 1,000 mg PO Q4H PRN PRN Reason: Pain (mild 1-3) Last Admin: 12/05/20 07:53 Dose: 1,000 mg Documented by: Acidophilus/Pectin (Acidophilus With [place] Pectin Tab) 1 tab PO DAILY NOEMI Last Admin: 12/04/20 10:22 Dose: Not Given Documented by: Benzocaine/Menthol (Benzocaine/Menthol 20%-0.5% [place] 78 Gm Cannister) 78 gm TOP ASDIRECTED PRN PRN Reason: Perineal Comfort Measure Last Admin: 12/04/20 04:17 Dose: 1 canister Documented by: Bisacodyl (Bisacodyl 10 Mg Supp) 10 mg RECTAL ONETIME PRN PRN Reason: Constipation Docusate Sodium (Docusate Sodium 100 Mg Cap) 100 mg PO Q12H PRN PRN Reason: Constipation Last Admin: 12/05/20 07:52 Dose: 100 mg Documented by: Emollient Ointment (Lanolin 100% Cream 7 Gm Tube) 0 gm TOP ASDIRECTED PRN PRN Reason: Sore Nipples Last Admin: 12/04/20 04:18 Dose: 1 applic Documented by: Tranexamic Acid 1,000 mg/ (Sodium Chloride) 110 mls @ 660 mls/hr IV ONETIME PRN PRN Reason: Bleeding Ibuprofen (Ibuprofen 400 Mg Tab) 400 mg PO Q4H PRN PRN Reason: Pain (mild 1-3) Ibuprofen (Ibuprofen 800 Mg Tab) 800 mg PO Q6H PRN PRN Reason: Pain (mild 1-3) Last Admin: 12/04/20 17:53 Dose: 800 mg Documented by: Methylergonovine Maleate (Methylergonovine 0.2 Mg/1 Ml Amp) 0.2 mg IM ONETIME PRN PRN Reason: Excessive Vaginal Bleeding Prenat Multivit/[place]/Iron/Folic Ac ( Multivitamin With Calcium/Folic Acid/Iron Tab) 1 each PO DAILY NOEMI Last Admin: 12/05/20 07:52 Dose: 1 each Documented by: Margo Fair (Margo Fair Medicated Pads 40/Jar) 1 pad TOP ASDIRECTED PRN PRN Reason: comfort care Last Admin: 12/04/20 04:16 Dose: 1 canister Documented by: Discontinued Medications Bupivacaine HCl (Bupivacaine 0.25% 10 Ml Sdv) Confirm Administered Dose 10 ml .ROUTE .STK-MED ONE Stop: 12/03/20 20:08 Butorphanol Tartrate (Butorphanol 1 Mg/Ml Sdv) 1 mg IVPUSH Q1H PRN PRN Reason: Pain (severe 7-10) Carboprost Tromethamine (Carboprost Tromethamine 250 Mcg/1 Ml Amp) 250 mcg IM ASDIRECTED PRN PRN Reason: Post Hemorrhage Oxytocin/Sodium Chloride (Oxytocin 30 Unit/500 Ml-Ns) 30 unit in 500 mls @ 999 mls/hr IV TITRATE NOEMI Tranexamic Acid 1,000 mg/ (Sodium Chloride) 110 mls @ 660 mls/hr IV ONETIME PRN PRN Reason: Bleeding Oxytocin/Sodium Chloride (Oxytocin 30 Unit/500 Ml-Ns) 30 unit in 500 mls @ 2 mls/hr IV TITRATE NOEMI; Protocol Last Titration: 12/03/20 21:00 Dose: 12 munits/min, 12 mls/hr Documented by: Lactated Ringer's (Ringers, Lactated) 1,000 mls @ 150 mls/hr IV ASDIRECTED NOEMI Last Admin: 12/03/20 19:56 Dose: 150 mls/hr Documented by: Ropivacaine (Naropin 0.2%) Confirm Administered Dose 200 mls @ as directed .ROUTE .[facility]-MED ONE Stop: 12/03/20 20:08 Lidocaine HCl (Lidocaine 1% 50 Ml Mdv) 50 ml INJECT ONETIME PRN PRN Reason: Laceration repair Methylergonovine Maleate (Methylergonovine 0.2 Mg/1 Ml Amp) 0.2 mg IM ASDIRECTED PRN PRN Reason: Post Hemorrhage Misoprostol (Misoprostol 200 Mcg Tab) 200 mcg PO ONETIME PRN PRN Reason: Post Hemorrhage Ondansetron HCl (Ondansetron 4 Mg/2 Ml Sdv) 4 mg IVPUSH Q4H PRN PRN Reason: Nausea/Vomiting Sodium Chloride (Sodium Chloride 0.9% 10 Ml Syringe) 10 ml FLUSH ASDIRECTED PRN PRN Reason: Keep Vein Open Sodium Chloride (Sodium Chloride 0.9% 2.5 Ml Syringe) 2.5 ml FLUSH ASDIRECTED PRN PRN Reason: Keep Vein Open Sodium Chloride (Sodium Chloride 0.9% 10 Ml Sdv) 10 ml IV ASDIRECTED PRN PRN Reason: IV Use Sterile Water (Water For Irrigation,Sterile 1,000 Ml Container) 1,000 ml IRR ASDIRECTED PRN PRN Reason: delivery Terbutaline Sulfate (Terbutaline 1 Mg/Ml Sdv) 0.25 mg SUBCUT ASDIRECTED PRN PRN Reason: Tacysystole - Interaction Feeding: Breastfed ; Nursed Well Support Person: - Recovery Exam Fundal Tone: Firm Fundal Level: 1 Fingerbreadths Below Umbilicus Fundal Placement: Midline Lochia Amount: Scant Lochia Color: Rubra/Red Perineum Description: Edematous Episiotomy/Laceration: Approximated Bladder Status: Nonpalpable, Voiding Urinary Elimination: Voided - Exam General: Alert, Oriented Lungs: Normal Respiratory Effort GI/Abdominal Exam: Soft, Non-Tender Extremities: Normal Range of Motion, Non-Tender Skin: Warm, Dry, Intact Neurological: No New Focal Deficit Psy/Mental Status: Alert, Normal Affect, Normal Mood - Problem List & Annotations (1) resulting from assisted reproductive technology in third trimester SNOMED Code(s): 24265436, 05912677, 901870740 Code(s): O09.813 - SUPRVSN OF PREG RSLT FROM ASSISTED REPRODCTV TECH, THIRD TRI Status: Acute Current Visit: Yes (2) Vacuum extraction, delivered, current hospitalization SNOMED Code(s): 641321627 Code(s): O75.9 - COMPLICATION OF LABOR AND DELIVERY, UNSPECIFIED Status: Acute Current Visit: Yes (3) bradycardia during labor SNOMED Code(s): 239149256, 336983494, 905164448 Code(s): JKH2006 - Status: Acute Current Visit: Yes - Problem List Review Problem List Initiated/Reviewed/Updated: Yes - My Orders Last 24 Hours: My Active Orders 12/04/20 09:00 Acidophilus/Pectin, [place] 1 tab PO DAILY Vit with Ca/FA/Iron [ Plus Iron] 1 each PO DAILY 12/05/20 08:33 Ready for Discharge [RC] PER UNIT ROUTINE - Assessment Assessment:: PPD# after vacuum assisted vaginal delivery. Stable, minimal lochia. If baby is discharged today, she will be discharged to home. If furniture polisher does not discharge baby, will continue care. - Plan Plan:: Discharge instructions reviewed.
[2020-12-05] MEDS: Acidophilus with Citrus Pectin Tab PO SCH (10:57)
[2020-12-05] MEDS: Lanolin 100% Cream 7 GM Tube TOP PRN (12:01)
[2020-12-05] MEDS: Ibuprofen 800 MG Tab PO PRN (18:23)
== END 2020-12-05 18:53 | disposition home or self-care (01) | DRG 807 ==
LOC: MW.OBCHECK 13:40 → MW.OB 13:45 → MW.OBCHECK 13:45 → MW.OB 14:36 → OBSVTOIN 12-04 01:32 → MW.OB 12-04 08:38
PROVIDERS: ADMIT Obstetrics & Gynecology; ATTEND Obstetrics & Gynecology
PROC: 10D07Z6 Extraction of Products of Conception, Vacuum, Via Natural or Artificial Opening (ICD-10-PCS; principal; 2020-12-04)
PROC: 0KQM0ZZ Repair Perineum Muscle, Open Approach (ICD-10-PCS; 2020-12-04)
PROC: 3E033VJ Introduction of Other Hormone into Peripheral Vein, Percutaneous Approach (ICD-10-PCS; 2020-12-04)
PROC: 10907ZC Drainage of Amniotic Fluid, Therapeutic from Products of Conception, Via Natural or Artificial Opening (ICD-10-PCS; 2020-12-04)
PROC: 3E0R3BZ Introduction of Anesthetic Agent into Spinal Canal, Percutaneous Approach (ICD-10-PCS; 2020-12-04)
DX: O36.5930 Maternal care for other known or suspected poor fetal growth, third trimester, not applicable or unspecified (principal); Z37.0 Single live birth; O70.1 Second degree perineal laceration during delivery; O76 Abnormality in fetal heart rate and rhythm complicating labor and delivery; Z20.822 Contact with and (suspected) exposure to COVID-19; Z3A.39 39 weeks gestation of pregnancy
CPT/HCPCS: 01967; 36415; 59020; 59025; 59409; 82803; 85014; 85018; 85027; 86592; 86850; 86900; 86901; A9270-GY; J2590; J2795; J3490; J7120; U0002